=== PATIENT | female | born 1970 | race Caucasian/White ===

== ENCOUNTER 2017-01-05 18:12 | Emergency (ER) | payer OTHER ==
[~2017-01-05] VITALS: Ht 162.6 cm; Wt 56.0 kg
[2017-01-05] MEDS ORDERED: DEXAMETHASONE SOD PHOS 4 MG/ML VIAL IM ONE (20:15)
[2017-01-05] MEDS ORDERED: METHOCARBAMOL 500 MG TAB PO ONE (20:15)
--- NOTE | 2017-01-05 20:19 | PD ---
HPI Chief Complaint: Back/ Neck Pain or Injury Time Seen by Provider: 20:15 Travel History International Travel<30 days: No Contact w/Intl Traveler<30days: No Traveled to known affect area: No History of Present Illness HPI Patient comes in complaining of exacerbation of chronic low back pain. Patient states this began yesterday when she awoke. Patient denies any known trauma or injury from the day before. Patient states that she believes she just slept wrong. Denies any radiation of pain. The is pain is a aching pain in her low back is worse with bending forward. Patient states she's been taking her naproxen and Neurontin with minimal to no relief of her symptoms. Patient states she lost her prescription Flexeril has not been able take that since Friday night. Patient denies any fevers, IV drug use, loss or change in bowel or bladder, abdominal pain, numbness or tingling anywhere, chest pain, or shortness of breath. PFSH Past Medical History Musculoskeletal: Yes (low back pain) Social History Alcohol Use: No Tobacco Use: Yes Substance Use: No Allergies-Medications (Allergen,Severity, Reaction): Coded Allergies: No Known Allergies (Unverified , 01/05/17) Reported Meds & Prescriptions Reported Meds & Active Scripts Active Robaxin (Methocarbamol) 500 Mg Tab 500 Mg PO Q8HR PRN Prednisone 10 Mg Tab 10 Mg PO BID Reported Flexeril (Cyclobenzaprine HCl) 10 Mg Tab 10 Mg PO TID Neurontin (Gabapentin) 600 Mg Tab 600 Mg PO BID Naproxen 375 Mg Tab 375 Mg PO BID Review of Systems Except as stated in HPI: all other systems reviewed are Neg Physical Exam Narrative GENERAL: Well-developed, well nourished, in no acute distress, and non-ill appearing. SKIN: Focused skin assessment warm and dry. HEAD: Atraumatic. Normocephalic. EYES: Pupils equal and round. EOMI. No scleral icterus. No injection or drainage. ENT: No nasal bleeding or discharge. Mucous membranes pink and moist. NECK: Trachea midline. Supple. No nuclear rigidity. CARDIOVASCULAR: Dorsal pulses 2+, intact, and equal bilaterally. Capillary refill less than 2 seconds.. RESPIRATORY: No accessory muscle use. No respiratory distress. GASTROINTESTINAL: Abdomen soft, non-tender, nondistended. Hepatic and splenic margins not palpable. No pulsatile mass. MUSCULOSKELETAL: No obvious deformities. No clubbing. No cyanosis. No edema. Full range of motion. Hip: FROM and equal BL with passive flexion, extension, Abduction, Adduction, and internal/external rotation. Pulses equal BL distal to injury. Capillary refill less than 2 seconds distal to injury and equal BL. FROM distal to injury and equal BL. Strength distal to injury equal BL. NV intact distal to injury and equal BL. Plantar flexion and dorsal flexion equal BL. Dorsal pulses equal BL. Sensation equal BL 1st web space. There is no tenderness crepitus or midline lumbar spine. Patient reports tenderness to paravertebral spinal muscles on the left lumbar muscles. Straight leg test positive on left. NEUROLOGICAL: Awake and alert. No obvious cranial nerve deficits. Motor grossly within normal limits. Normal speech. PSYCHIATRIC: Appropriate mood and affect; insight and judgment normal. Data Data Last Documented VS Vital Signs Date Time Temp Pulse Resp B/P Pulse Ox O2 Delivery O2 Flow Rate FiO2 01/05/17 20:22 20 Orders Dexamethasone Inj (Decadron Inj) (01/05/17 20:15) Methocarbamol (Robaxin) (01/05/17 20:15) MDM Medical Decision Making Medical Screen Exam Complete: Yes Emergency Medical Condition: Yes Differential Diagnosis Fracture, strain, contusion, other Narrative Course The patient presented complaining of back pain. There was no history of recent fall or trauma. There was no evidence to support genitourinary etiology. There is also no evidence to suggest vascular pathology such as AAA dissection. No fevers or other evidence to suspect infectious processes, abscess, osteomyelitis etc.The patients neurological exam is normal with normal motor and sensory. There is no saddle paresthesias reported and no bowel or bladder incontinence or retention. I suspect the pain is mechanical in nature. Clinical suspicion, plan of care and management was discussed with the patient. The patient was instructed to follow up with their health care provider. The patient was also instructed to return if the pain worsened, changed, or developed weakness or bowel or bladder trouble. The patient agreed with plan. Patient in no obvious distress upon re-evaluation. Reports symptoms have improved with medication here. Patient was asked if they wanted to speak to my attending, which the patient did not wish to do at this time. Any questions/ concerns in reference to patient diagnosis/condition discussed and clarified prior to patient's discharge. Reinforced sheer importance of close follow up with patient's primary physician or primary care clinic. Instructed patient to return to ED immediately, if symptoms return/worsen. Pt showed understanding of above instructions. Further instructions and recommendations were detailed in discharge paperwork. Pt ambulated without difficulty out of ED at discharge. Diagnosis Primary Impression: Acute exacerbation of chronic low back pain Patient Instructions: Back Pain (ED), Chronic Back Pain (ED), General Instructions, Lower Back Exercises (GEN) Additional Instructions: Follow-up with your primary care physician this week as scheduled. Take all medication as prescribed. Do not take muscle relaxer prescribed today with your Flexeril. Return to the emergency department if symptoms get worse. Med/Other Pt SpecificInfo: Prescription(s) given Scripts Methocarbamol (Robaxin)500 Mg [id number] Mg PO Q8HR PRN (MUSCLE PAIN) #10 TAB Ref 0 Prov:Sahhida García MD 01/05/17 Prednisone 10 Mg Tab10 Mg PO BID #6 TAB Ref 0 Prov:Shahida García MD 01/05/17 Disposition: 01 DISCHARGE HOME Condition: Donnie Vaughan Jan 05, 2017 20:19 Condition: Donnie Vaughan Jan 05, 2017 20:19
[2017-01-05] MEDS ORDERED: CYCL1TAB29 PO (20:20)
[2017-01-05] MEDS ORDERED: NEUR600T PO (20:20)
[2017-01-05] MEDS ORDERED: NAPR375T PO (20:20)
[2017-01-05] MEDS ORDERED: PRED10 PO (20:22)
[2017-01-05] MEDS ORDERED: ROBA500T PO (20:22)
== END 2017-01-05 21:20 | disposition home or self-care (01) ==
LOC: NEPD 18:12
DX: M54.5 Low back pain (principal); G89.29 Other chronic pain; Z79.899 Other long term (current) drug therapy; Z72.0 Tobacco use
CPT/HCPCS: 96372; 99284; J1100

== ENCOUNTER 2017-08-28 14:22 | Emergency (ER) | payer OTHER ==
[~2017-08-28 14:22] MED LIST: CYCL10TA PO; NAPR-855 PO; NEUR600T PO; PRED10 PO; ROBA500T PO
[2017-08-28 14:35] VITALS: BP 107/77; PULSE 130; RESP 20; TEMP 98.7; O2SAT 98
[2017-08-28 15:51] LABS: AUTOMATED NEUTROPHIL # 16.8 TH/MM3 (1.8-7.7); BASOPHIL % 0.1 % (0.0-2.0); EOSINOPHIL % 0.1 % (0.0-4.0); HEMATOCRIT 39.4 % (35.0-46.0); HEMOGLOBIN 13.9 GM/DL (11.6-15.3); LYMPH % 5.9 % (9.0-44.0); LYMPHOCYTE # 1.3 TH/MM3 (1.0-4.8); MEAN CELL VOLUME 88.1 FL (80.0-100.0); MEAN CORPUSCULAR HEMOGLOBIN 31.1 PG (27.0-34.0); MEAN CORPUSCULAR HGB CONC 35.4 % (32.0-36.0); MEAN PLATELET VOLUME 8.7 FL (7.0-11.0); MONO % 16.5 % (0.0-8.0); MONOCYTE # 3.6 TH/MM3 (0-0.9); NEUT % 77.4 % (16.0-70.0); PLATELET COUNT 203 TH/MM3 (150-450); RED BLOOD COUNT 4.48 MIL/MM3 (4.00-5.30); RED CELL DISTRIBUTION WIDTH 13.1 % (11.6-17.2); WHITE BLOOD COUNT 21.7 TH/MM3 (4.0-11.0)
[2017-08-28 16:08] LABS: ALBUMIN 3.3 GM/DL (3.4-5.0); ALT (GPT) 19 U/L (10-53); AST (GOT) 15 U/L (15-37); BICARBONATE 20.9 MEQ/L (21.0-32.0); BLOOD UREA NITROGEN 8 MG/DL (7-18); CALCIUM 8.7 MG/DL (8.5-10.1); CHLORIDE 104 MEQ/L (98-107); CREATININE 0.96 MG/DL (0.50-1.00); GLOMERULAR FILTRATION RATE 62 ML/MIN (>89); GLUCOSE,RANDOM 108 MG/DL (74-106); SODIUM (NA) 134 MEQ/L (136-145)
[2017-08-28 16:10] LABS: ALKALINE PHOSPHATASE 82 U/L (45-117); TOTAL BILIRUBIN ADULT 0.5 MG/DL (0.2-1.0)
[2017-08-28 16:27] LABS: BANDS 7 % (0-6); LYMPHOCYTES 2 % (9-44); MONOCYTES 17 % (0-8); NEUTROPHIL # MANUAL DIFF 17.6 TH/MM3 (1.8-7.7); POLYS (SEG NEUTROPHILS) 74 % (16-70)
[2017-08-28 16:28] LABS: DOHLE BODIES PRESENT (NONE SEEN)
[2017-08-28] MEDS ORDERED: SODIUM CHLOR 0.9% 1000 ML INJ 1,000 ML IV ONE (17:15)
--- NOTE | 2017-08-28 17:17 | PD ---
HPI Chief Complaint: GI Complaint Time Seen by Provider: 17:07 Travel History International Travel<30 days: No Contact w/Intl Traveler<30days: No Traveled to known affect area: No History of Present Illness HPI Patient is a 47-year-old female presents emergency department for evaluation of headache right upper quadrant abdominal pain, generalized weakness and just not feeling well. She states that she gets frequent infections, she went to her primary care physician today because she really did not want to come to the emergency department because she frequently gets admitted, states is also been nauseous without vomiting and very thirsty, not eating or drinking very well. States symptoms for the past 3 days, gradually worsening, associated signs symptoms in context as above PFSH Past Medical History Arthritis: Yes Diminished Hearing: No Musculoskeletal: Yes (low back pain) Menopausal: Yes : 2 Para: 2 Past Surgical History Hysterectomy: Yes (1988) Social History Alcohol Use: No Tobacco Use: Yes (one pack) Substance Use: No Allergies-Medications (Allergen,Severity, Reaction): Coded Allergies: No Known Allergies (Unverified , 01/05/17) Reported Meds & Prescriptions Reported Meds & Active Scripts Active Keflex (Cephalexin) 500 Mg Cap 500 Mg PO Q6H 7 Days Robaxin (Methocarbamol) 500 Mg Tab 500 Mg PO Q8HR PRN Prednisone 10 Mg Tab 10 Mg PO BID Reported Flexeril (Cyclobenzaprine HCl) 10 Mg Tab 10 Mg PO TID Neurontin (Gabapentin) 600 Mg Tab 600 Mg PO BID Naproxen 375 Mg Tab 375 Mg PO BID Review of Systems Except as stated in HPI: all other systems reviewed are Neg Physical Exam Narrative GENERAL: Well-developed, very thin patient appears ill. Anxious peer SKIN: Focused skin assessment warm/dry. HEAD: Atraumatic. Normocephalic. EYES: Pupils equal and round. No scleral icterus. No injection or drainage. ENT: No nasal bleeding or discharge. Mucous membranes pink and moist. NECK: Trachea midline. No JVD. CARDIOVASCULAR: Tachycardic with regular rhythm. No murmur appreciated. RESPIRATORY: No accessory muscle use. Clear to auscultation. Breath sounds equal bilaterally. GASTROINTESTINAL: Abdomen soft, non-tender, nondistended. Hepatic and splenic margins not palpable. MUSCULOSKELETAL: No obvious deformities. No clubbing. No cyanosis. No edema. NEUROLOGICAL: Awake and alert. No obvious cranial nerve deficits. Motor grossly within normal limits. Normal speech. PSYCHIATRIC: Appropriate mood and affect; insight and judgment normal. Data Data Last Documented VS Vital Signs Date Time Temp Pulse Resp B/P (MAP) Pulse Ox O2 Delivery O2 Flow Rate FiO2 08/28/17 14:35 98.7 130 20 107/77 (87) 98 Orders Orders Complete Blood Count With Diff (08/28/17 14:38) Comprehensive Metabolic Panel (08/28/17 14:38) Urinalysis - C+S If Indicated (08/28/17 14:38) Iv Access Insert/Monitor (08/28/17 14:38) Oxygen Administration (08/28/17 14:38) Oximetry (08/28/17 14:38) Lipase (08/28/17 14:38) Electrocardiogram (08/28/17 ) Monoscreen (08/28/17 17:15) Influenzae A/B Antigen (08/28/17 17:15) Chest, Pa & Lat (08/28/17 ) Sodium Chlor 0.9% 1000 Ml Inj (Ns 1000 M (08/28/17 17:15) Urine Culture (08/28/17 15:00) Ceftriaxone Inj (Rocephin Inj) (08/28/17 18:00) Labs Laboratory Tests Test 08/28/17 15:00 White Blood Count 21.7 TH/MM3 Red Blood Count 4.48 MIL/MM3 Hemoglobin 13.9 GM/DL Hematocrit 39.4 % Mean Corpuscular Volume 88.1 FL Mean Corpuscular Hemoglobin 31.1 PG Mean Corpuscular Hemoglobin Concent 35.4 % Red Cell Distribution Width 13.1 % Platelet Count 203 TH/MM3 Mean Platelet Volume 8.7 FL Neutrophils (%) (Auto) 77.4 % Lymphocytes (%) (Auto) 5.9 % Monocytes (%) (Auto) 16.5 % Eosinophils (%) (Auto) 0.1 % Basophils (%) (Auto) 0.1 % Neutrophils # (Auto) 16.8 TH/MM3 Lymphocytes # (Auto) 1.3 TH/MM3 Monocytes # (Auto) 3.6 TH/MM3 Eosinophils # (Auto) 0.0 TH/MM3 Basophils # (Auto) 0.0 TH/MM3 CBC Comment AUTO DIFF Differential Total Cells Counted 100 Neutrophils % (Manual) 74 % Band Neutrophils % 7 % Lymphocytes % 2 % Monocytes % 17 % Neutrophils # (Manual) 17.6 TH/MM3 Differential Comment FINAL DIFF MANUAL Dohle Bodies PRESENT Platelet Estimate NORMAL Platelet Morphology Comment NORMAL Urine Color YELLOW Urine Turbidity CLOUDY Urine pH 6.5 Urine Specific [place] 1.012 Urine Protein 30 mg/dL Urine Glucose (UA) NEG mg/dL Urine Ketones NEG mg/dL Urine Occult Blood SMALL Urine Nitrite POS Urine Bilirubin NEG Urine Urobilinogen LESS THAN 2.0 MG/DL Urine Leukocyte Esterase LARGE Urine RBC 11 /hpf Urine WBC /hpf Urine WBC Clumps MANY Urine Squamous Epithelial Cells 29 /hpf Urine Bacteria MOD /hpf Urine Hyaline Casts 5 /lpf Urine Mucus FEW /lpf Microscopic Urinalysis Comment CULTURE INDICATED Blood Urea Nitrogen 8 MG/DL Creatinine 0.96 MG/DL Random Glucose 108 MG/DL Total Protein 8.0 GM/DL Albumin 3.3 GM/DL Calcium Level 8.7 MG/DL Alkaline Phosphatase 82 U/L Aspartate Amino Transf (AST/SGOT) 15 U/L Alanine Aminotransferase (ALT/SGPT) 19 U/L Total Bilirubin 0.5 MG/DL Sodium Level 134 MEQ/L Potassium Level 3.9 MEQ/L Chloride Level 104 MEQ/L Carbon Dioxide Level 20.9 MEQ/L Anion Gap 9 MEQ/L Estimat Glomerular Filtration Rate 62 ML/MIN Lipase 45 U/L MDM Medical Decision Making Medical Screen Exam Complete: Yes Emergency Medical Condition: Yes Differential Diagnosis UTI, sepsis, viral illness, gallbladder, acute abdomen, headache, dehydration Narrative Course Patient room to the emergency department, labs were drawn in triage 2 weeks. Patient CARE, at times she is room to the emergency department her white count is significantly elevated to 22,000, there is a monocyte predominance but there is also a left shift. Given her right upper quadrant pain the possibilities for acute cholecystitis as well as monocytosis are also possible. I recommended the patient have CAT scan of her abdomen as well as chest x-ray and CT head as she has had headache. Initially she is excepting but then when they went to start IV for fluids to be given the patient adamantly refused stating that she wanted to go home. I revisited her and the patient states that her grandchildren are in town and that she wants to go home. By this time the urine had returned which was nitrate positive and given her vital signs are white count and the confirmed infection she is now septic with UTI as her source. I highly recommend to her that she be admitted to the hospital for IV antibiotics fluid resuscitation and monitoring closely of her vital signs. She states that she wanted to go home. I then discussed with her the risk of and permanent disability including being completely ventilator dependent and bed sores and being bedbound for the rest of her life she verbalized understanding and accepted these risks and still chose to sign out AMA. She was given a dose of Rocephin prior to leaving the hospital and will be placed on Keflex, I have asked nursing to provide her with her discharge instructions and I told her to come back as soon as possible for further treatment. Diagnosis Primary Impression: Sepsis Additional Impression: UTI (urinary tract infection) Additional Instructions: You have chosen to sign out AGAINST MEDICAL ADVICE today, as was discussed with you and you told me you have accepted the risk of becoming permanently and totally disabled including the possibility of being on life support for the rest your life as well as dying. I recommend you return to the emergency department as soon as possible for admission. Med/Other Pt SpecificInfo: Prescription(s) given Scripts Cephalexin (Keflex) 500 Mg Cap 500 MG PO Q6H for Infection for 7 Days, #28 CAP 0 Refills Prov: Antwon Fleming MD 08/28/17 Disposition: 07 AGAINST MEDICAL ADVICE Antwon Fleming MD Aug 28, 2017 17:17
[2017-08-28 17:18] LABS: BACTERIA, URINE MOD /hpf; BILIRUBIN, URINE NEG (NEG); BLOOD, URINE SMALL (NEG); GLUCOSE,URINE NEG (NEG); HYALINE CAST, URINE 5 /lpf (RARE); KETONE, URINE NEG (NEG); MUCUS URINE FEW /lpf (OCC); NITRITE,URINE POS (NEG); PH, URINE 6.5 (5.0-8.5); SQUAMOUS EPITHELIAL CELL URINE 29 /hpf (0-5); URINE COLOR YELLOW (YELLW/STRAW); URINE LEUKOCYTE ESTERASE LARGE (NEG); WHITE BLOOD CELL CLUMPS MANY
--- NOTE | 2017-08-28 17:47 | RADRPT ---
EXAM DATE/TIME: 08/28/2017 17:34 [facility] COMPARISON: No previous studies available for comparison. INDICATIONS : Short of breath. MEDICAL HISTORY : Hepatitis C. Myocardiopathy. SURGICAL HISTORY : Hysterectomy. ENCOUNTER: Initial ACUITY: 1 day PAIN SCORE: 0/10 LOCATION: Bilateral chest FINDINGS: PA and lateral views of the chest demonstrate the lungs to be symmetrically aerated without evidence of mass, infiltrate or effusion. The cardiomediastinal contours are unremarkable. Osseous structure s are intact. CONCLUSION: 1. No acute cardiopulmonary disease. Patrick Metzger MD on August 28, 2017 at 17:45 Board Certified Radiologist. This report was verified electronically.
[2017-08-28] MEDS ORDERED: CEPH-460 PO (17:52)
--- NOTE | 2017-08-28 23:56 | EKG ---
Date Performed: 08/28/2017 Time Performed: 15:07:03 PTAGE: 47 years EKG: SINUS TACHYCARDIA WITH SHORT SC INTERVAL NONSPECIFIC ST & T-WAVE ABNORMALITY ABNORMAL RHYTH M ECG NO PREVIOUS TRACING DOCTOR: Mario Blackburn Interpretating Date/Time 08/28/2017 23:55:36
[2017-08-29 05:33] LABS: MONOSCREEN NEG (NEG)
== END 2017-08-28 18:23 | disposition left against medical advice (07) ==
LOC: NEPC 14:22
DX: A41.9 Sepsis, unspecified organism (principal); N39.0 Urinary tract infection, site not specified; B96.29 Other Escherichia coli [E. coli] as the cause of diseases classified elsewhere; M19.90 Unspecified osteoarthritis, unspecified site; F17.200 Nicotine dependence, unspecified, uncomplicated; Z53.20 Procedure and treatment not carried out because of patient's decision for unspecified reasons
CPT/HCPCS: 71046; 80053; 81001; 83690; 85007; 85027; 86308; 87077; 87086; 87186; 93005; 96372; 99285; J0696

== ENCOUNTER 2017-08-29 11:47 | Emergency (ER) | payer OTHER ==
[~2017-08-29] VITALS: Ht 160 cm; Wt 60.0 kg
[~2017-08-29 11:47] MED LIST changes: +CEPH-460 PO
[2017-08-29 11:54] VITALS: BP 114/71; PULSE 119; RESP 20; TEMP 98; O2SAT 100
[2017-08-30] MEDS ORDERED: CLON.5 PO (22:59)
== END 2017-08-29 13:49 | disposition left against medical advice (07) ==
LOC: NED 11:47
DX: N39.0 Urinary tract infection, site not specified (principal)
CPT/HCPCS: 99281

== ENCOUNTER 2017-08-30 19:55 | Inpatient (IN) | payer OTHER ==
[~2017-08-30] VITALS: Ht 160 cm; Wt 57.8 kg
[2017-08-30 19:56] VITALS: BP 157/65; PULSE 119; RESP 18; TEMP 98.9; O2SAT 97
[2017-08-30 21:03] VITALS: TEMP 99.5
[2017-08-30] MEDS ORDERED: SODIUM CHLOR 0.9% 1000 ML INJ 800 ML IV ONE (21:47)
[2017-08-30] MEDS ORDERED: SODIUM CHLOR 0.9% 1000 ML INJ 1,000 ML IV ONE (21:47)
[2017-08-30] MEDS ORDERED: PIPERACIL-TAZO 4.5 GM PREMIX 100 ML IV ONE (22:00)
--- NOTE | 2017-08-30 22:09 | PD ---
HPI Chief Complaint: Abdominal Pain Time Seen by Provider: 21:39 Travel History International Travel<30 days: No Contact w/Intl Traveler<30days: No Traveled to known affect area: No History of Present Illness HPI 47-year-old female seen in the emergency department on 08/28/17, diagnosed with sepsis with a white count of 22,000 as well as a UTI, recommended to be admitted at that time, left AMA, here because the patient feels even worse. The patient is complaining of generalized malaise and weakness, headache, and right upper abdominal discomfort. The symptoms have actually been going on for about for 5 days. Headache has been constant, however intermittently worse at times, diffuse, described as pressure, moderate to severe. Right upper quadrant abdominal pain described as a dull ache, nonradiating, constant. History of hysterectomy. She has had dysuria and increased urinary frequency. No nausea or vomiting. No diarrhea. No rash. She denies illicit drug use. Chart reviewed from 08/28/17 shows that the patient had a UTI that grew out ESBL positive E. coli that is sensitive to Augmentin, ertapenem, imipenem, Zosyn, Bactrim. The patient states that she left AMA 2 days ago because her grandchildren were in town. She was discharged home with Keflex, however she did not fill this prescription. [facility] Past Medical History Arthritis: Yes Diminished Hearing: No Musculoskeletal: Yes (low back pain) ?: Not Menopausal: Yes : 2 Para: 2 Past Surgical History Hysterectomy: Yes (1988) Social History Alcohol Use: No Tobacco Use: Yes (one pack) Substance Use: No Allergies-Medications (Allergen,Severity, Reaction): Coded Allergies: No Known Allergies (Unverified Allergy, Unknown, 08/30/17) Reported Meds & Prescriptions Reported Meds & Active Scripts Active Prednisone 10 Mg Tab 10 Mg PO BID Reported Klonopin (Clonazepam) 0.5 Mg Tab 0.5 Mg PO BID Flexeril (Cyclobenzaprine HCl) 10 Mg Tab 10 Mg PO TID Neurontin (Gabapentin) 600 Mg Tab 600 Mg PO BID Naproxen 375 Mg Tab 375 Mg PO BID Review of Systems Except as stated in HPI: all other systems reviewed are Neg Physical Exam Narrative GENERAL: Well-developed, thin, no apparent distress, awake, alert SKIN: Focused skin assessment warm/dry. No rash. HEAD: Atraumatic. Normocephalic. EYES: Pupils equal and round. No scleral icterus. No injection or drainage. ENT: No nasal bleeding or discharge. Mucous membranes pink and dry. Edentulous. Normal pharynx. NECK: Trachea midline. No JVD. No nuchal rigidity. CARDIOVASCULAR: Tachycardic, rate 107, regular. RESPIRATORY: No accessory muscle use. Clear to auscultation. Breath sounds equal bilaterally. GASTROINTESTINAL: Abdomen soft, non-tender, nondistended. MUSCULOSKELETAL: No obvious deformities. No clubbing. No cyanosis. No edema. NEUROLOGICAL: Awake and alert. No obvious cranial nerve deficits. Motor grossly within normal limits. Normal speech. PSYCHIATRIC: Appropriate mood and affect; insight and judgment normal. Data Data Last Documented VS Vital Signs Date Time Temp Pulse Resp B/P (MAP) Pulse Ox O2 Delivery O2 Flow Rate FiO2 08/31/17 02:30 99.4 81 20 109/68 (82) 08/31/17 01:30 98 08/30/17 22:36 Room Air Orders Orders Sepsis Workup Initiated (08/30/17 ) Complete Blood Count With Diff (08/30/17 21:47) Comprehensive Metabolic Panel (08/30/17 21:47) Lactic Acid Sepsis Protocol (08/30/17 21:47) Urinalysis - C+S If Indicated (08/30/17 21:47) Influenzae A/B Antigen (08/30/17 21:47) Blood Culture (08/30/17 21:47) Chest, Single Ap (08/30/17 21:47) Blood Glucose (08/30/17 21:47) Ecg Monitoring (08/30/17 21:47) Iv Access Insert/Monitor (08/30/17 21:47) Oximetry (08/30/17 21:47) Oxygen Administration (08/30/17 21:47) Ct Abd/Pel W Iv Contrast(Rout) (08/30/17 21:47) Sodium Chlor 0.9% 1000 Ml Inj (Ns 1000 M (08/30/17 21:47) Sodium Chlor 0.9% 1000 Ml Inj (Ns 1000 M (08/30/17 21:47) Piperacil-Tazo 4.5 Gm Premix (Zosyn 4.5 (08/30/17 22:00) Metoclopramide Inj (Reglan Inj) (08/30/17 22:45) Ketorolac Inj (Toradol Inj) (08/30/17 22:45) Potassium Chlor 10 Meq Premix (Kcl 10 Me (08/31/17 00:15) Urine Culture (08/30/17 23:25) Iohexol 350 Inj (Omnipaque 350 Inj) (08/31/17 00:18) Piperacil-Tazo 4.5 Gm Premix (Zosyn 4.5 (08/31/17 04:00) Admit To Inpatient (08/31/17 ) Vital Signs (Adult) Q4H (08/31/17 03:22) Activity Oob Ad Yasemin (08/31/17 03:22) Snack Foods Mixer Operator / Telemetry .CONTINUOUS (08/31/17 03:22) Intake + Output COLTON.QSHIFT (08/31/17 03:22) Sodium Chlor 0.9% 1000 Ml Inj (Ns 1000 M (08/31/17 03:22) Sodium Chloride 0.9% Flush (Ns Flush) (08/31/17 03:30) Sodium Chloride 0.9% Flush (Ns Flush) (08/31/17 09:00) Ondansetron Inj (Zofran Inj) (08/31/17 03:30) Comprehensive Metabolic Panel (09/01/17 06:00) Complete Blood Count With Diff (09/01/17 06:00) Scd Bilateral/Knee High COLTON.BID (08/31/17 03:22) Gomez Bilateral/Knee High COLTON.QSHIFT (08/31/17 03:24) Acetaminophen (Tylenol) (08/31/17 03:30) Acetamin-Hydrocod 325-5 Mg ([place] 5-325 (08/31/17 03:30) Acetamin-Hydrocod 325-10 Mg ([place] 10-32 (08/31/17 03:30) Docusate Sodium-Senna ([place]armelita-Colace) (08/31/17 09:00) Magnesium Hydroxide Liq (Milk Of Magnesi (08/31/17 03:30) Sennosides (Senokot) (08/31/17 03:30) Bisacodyl Supp (Dulcolax Supp) (08/31/17 03:30) Lactulose Liq (Lactulose Liq) (08/31/17 03:30) Inpatient Certification (08/31/17 ) Admit Order (Ed Use Only) (08/31/17 ) Snack Foods Mixer Operator / Telemetry COLTON.Q8H (08/31/17 03:25) Diet Heart Healthy (08/31/17 Breakfast) Activity Oob With Assistance (08/31/17 03:25) Notify Dr: Other (08/31/17 03:25) Labs Laboratory Tests Test 08/30/17 22:15 08/30/17 23:25 White Blood Count 15.1 TH/MM3 Red Blood Count 4.31 MIL/MM3 Hemoglobin 12.9 GM/DL Hematocrit 37.5 % Mean Corpuscular Volume 86.9 FL Mean Corpuscular Hemoglobin 29.9 PG Mean Corpuscular Hemoglobin Concent 34.4 % Red Cell Distribution Width 12.7 % Platelet Count 213 TH/MM3 Mean Platelet Volume 8.3 FL Neutrophils (%) (Auto) 68.3 % Lymphocytes (%) (Auto) 9.7 % Monocytes (%) (Auto) 21.0 % Eosinophils (%) (Auto) 0.5 % Basophils (%) (Auto) 0.5 % Neutrophils # (Auto) 10.2 TH/MM3 Lymphocytes # (Auto) 1.5 TH/MM3 Monocytes # (Auto) 3.2 TH/MM3 Eosinophils # (Auto) 0.1 TH/MM3 Basophils # (Auto) 0.1 TH/MM3 CBC Comment AUTO DIFF Differential Total Cells Counted 100 Neutrophils % (Manual) 58 % Band Neutrophils % 5 % Lymphocytes % 6 % Monocytes % 30 % Basophils % 1 % Neutrophils # (Manual) 9.5 TH/MM3 Differential Comment FINAL DIFF MANUAL Platelet Estimate NORMAL Platelet Morphology Comment NORMAL Red Cell Morphology Comment NORMAL Blood Urea Nitrogen 10 MG/DL Creatinine 0.80 MG/DL Random Glucose 123 MG/DL Total Protein 7.6 GM/DL Albumin 2.9 GM/DL Calcium Level 8.4 MG/DL Alkaline Phosphatase 81 U/L Aspartate Amino Transf (AST/SGOT) 19 U/L Alanine Aminotransferase (ALT/SGPT) 17 U/L Total Bilirubin 0.4 MG/DL Sodium Level 132 MEQ/L Potassium Level 2.9 MEQ/L Chloride Level 98 MEQ/L Carbon Dioxide Level 24.1 MEQ/L Anion Gap 10 MEQ/L Estimat Glomerular Filtration Rate 76 ML/MIN Lactic Acid Level 0.8 mmol/L Urine Color YELLOW Urine Turbidity CLOUDY Urine pH 6.0 Urine Specific [place] LESS/EQUAL 1.005 Urine Protein TRACE mg/dL Urine Glucose (UA) NEG mg/dL Urine Ketones NEG mg/dL Urine Occult Blood MOD Urine Nitrite POS Urine Bilirubin NEG Urine Urobilinogen 0.2 MG/DL Urine Leukocyte Esterase MOD Urine RBC 4-9 /hpf Urine WBC 50-99 /hpf Urine WBC Clumps FEW Urine Squamous Epithelial Cells 0-5 /hpf Urine Bacteria MANY /hpf Microscopic Urinalysis Comment CATH-CULTURE IND MDM Medical Decision Making Medical Screen Exam Complete: Yes Emergency Medical Condition: Yes Medical Record Reviewed: Yes Differential Diagnosis Sepsis, UTI, bacteremia, cholecystitis, colitis, meningitis/encephalitis less likely Narrative Course Initial vital signs show heart rate 119, blood pressure 157/65, pulse ox 97% on room air, oral temperature 99.5F. Chart review shows that the patient's UA from 2 days ago grew out E. coli that is positive for a BSL that is sensitive to Zosyn, therefore the patient was given a dose of Zosyn IV as well as written for 2 L of normal saline IV after my assessment. The patient was also given IV Toradol and IV Reglan and states that her headache had resolved. CBC: WBC 15.1, hemoglobin 12.9, hematocrit 37.5, platelets 213 At approximately 11:00 PM at the end of my shift the patient was signed out to Dr. Alvarez to follow-up with the rest of labs, imaging, and disposition. Ren Richard MD Aug 30, 2017 22:09
[2017-08-30 22:25] LABS: AUTOMATED NEUTROPHIL # 10.2 TH/MM3 (1.8-7.7); BASOPHIL # 0.1 TH/MM3 (0-0.2); BASOPHIL % 0.5 % (0.0-2.0); EOSINOPHIL # 0.1 TH/MM3 (0-0.4); EOSINOPHIL % 0.5 % (0.0-4.0); HEMATOCRIT 37.5 % (35.0-46.0); HEMOGLOBIN 12.9 GM/DL (11.6-15.3); LYMPH % 9.7 % (9.0-44.0); LYMPHOCYTE # 1.5 TH/MM3 (1.0-4.8); MEAN CELL VOLUME 86.9 FL (80.0-100.0); MEAN CORPUSCULAR HEMOGLOBIN 29.9 PG (27.0-34.0); MEAN CORPUSCULAR HGB CONC 34.4 % (32.0-36.0); MEAN PLATELET VOLUME 8.3 FL (7.0-11.0); MONOCYTE # 3.2 TH/MM3 (0-0.9); NEUT % 68.3 % (16.0-70.0); PLATELET COUNT 213 TH/MM3 (150-450); RED BLOOD COUNT 4.31 MIL/MM3 (4.00-5.30); RED CELL DISTRIBUTION WIDTH 12.7 % (11.6-17.2); WHITE BLOOD COUNT 15.1 TH/MM3 (4.0-11.0)
[2017-08-30 22:30] VITALS: BP 102/62; PULSE 83; RESP 20; O2SAT 97
[2017-08-30 22:36] VITALS: BP 109/71; PULSE 102; RESP 18; O2SAT 100
[2017-08-30] MEDS ORDERED: KETOROLAC TROMETHAMINE 30 MG/ML (IVP) VIAL IV PUSH ONE (22:45)
[2017-08-30] MEDS ORDERED: METOCLOPRAMIDE HCL 10 MG/2 ML VIAL IV PUSH ONE (22:45)
--- NOTE | 2017-08-30 22:47 | RADRPT ---
EXAM DATE/TIME: 08/30/2017 22:17 [facility] COMPARISON: No previous studies available for comparison. INDICATIONS : Diagnosed with sepsis 3 days ago. MEDICAL HISTORY : None. SURGICAL HISTORY : Hysterectomy. ENCOUNTER: Initial ACUITY: 3 days PAIN SCORE: 5/10 LOCATION: Bilateral chest FINDINGS: A single view of the chest demonstrates no focal consolidation or effusion. Heart size within normal limits. No pneumothorax. CONCLUSION: 1. No active disease. José Saavedra MD on August 30, 2017 at 22:44 Board Certified Radiologist. This report was verified electronically.
[2017-08-30] MEDS ORDERED: CLON.5 PO (22:59)
[2017-08-30 23:33] LABS: BILIRUBIN, URINE NEG (NEG); BLOOD, URINE MOD (NEG); GLUCOSE,URINE NEG (NEG); KETONE, URINE NEG (NEG); NITRITE,URINE POS (NEG); URINE COLOR YELLOW (YELLW/STRAW); URINE LEUKOCYTE ESTERASE MOD (NEG)
[2017-08-30 23:50] LABS: BANDS 5 % (0-6); BASOPHILS 1 % (0-2); LYMPHOCYTES 6 % (9-44); MONOCYTES 30 % (0-8); NEUTROPHIL # MANUAL DIFF 9.5 TH/MM3 (1.8-7.7); POLYS (SEG NEUTROPHILS) 58 % (16-70)
[2017-08-30 23:53] LABS: ALBUMIN 2.9 GM/DL (3.4-5.0); ALKALINE PHOSPHATASE 81 U/L (45-117); ALT (GPT) 17 U/L (10-53); AST (GOT) 19 U/L (15-37); BICARBONATE 24.1 MEQ/L (21.0-32.0); BLOOD UREA NITROGEN 10 MG/DL (7-18); CALCIUM 8.4 MG/DL (8.5-10.1); CHLORIDE 98 MEQ/L (98-107); GLOMERULAR FILTRATION RATE 76 ML/MIN (>89); GLUCOSE,RANDOM 123 MG/DL (74-106); SODIUM (NA) 132 MEQ/L (136-145); TOTAL BILIRUBIN ADULT 0.4 MG/DL (0.2-1.0); TOTAL PROTEIN 7.6 GM/DL (6.4-8.2)
[2017-08-31] VITALS (10 sets, daily range): BP systolic 91–116; BP diastolic 53–84; PULSE 81–92; RESP 16–20; TEMP 97.3–99.4; O2SAT 98–100
[2017-08-31] MEDS ORDERED: POTASSIUM CHLOR 10 MEQ PREMIX 100 ML IV ONE (00:15)
--- NOTE | 2017-08-31 00:15 | PD ---
Physical Exam Date Seen by Provider: Aug 31, 2017 Time Seen by Provider: 00:14 Narrative Accepted transfer of care from Dr. Richard Data Data Last Documented VS Vital Signs Date Time Temp Pulse Resp B/P (MAP) Pulse Ox O2 Delivery O2 Flow Rate FiO2 08/31/17 02:30 99.4 81 20 109/68 (82) 08/31/17 01:30 98 08/30/17 22:36 Room Air Orders Orders Sepsis Workup Initiated (08/30/17 ) Complete Blood Count With Diff (08/30/17 21:47) Comprehensive Metabolic Panel (08/30/17 21:47) Lactic Acid Sepsis Protocol (08/30/17 21:47) Urinalysis - C+S If Indicated (08/30/17 21:47) Influenzae A/B Antigen (08/30/17 21:47) Blood Culture (08/30/17 21:47) Chest, Single Ap (08/30/17 21:47) Blood Glucose (08/30/17 21:47) Ecg Monitoring (08/30/17 21:47) Iv Access Insert/Monitor (08/30/17 21:47) Oximetry (08/30/17 21:47) Oxygen Administration (08/30/17 21:47) Ct Abd/Pel W Iv Contrast(Rout) (08/30/17 21:47) Sodium Chlor 0.9% 1000 Ml Inj (Ns 1000 M (08/30/17 21:47) Sodium Chlor 0.9% 1000 Ml Inj (Ns 1000 M (08/30/17 21:47) Piperacil-Tazo 4.5 Gm Premix (Zosyn 4.5 (08/30/17 22:00) Metoclopramide Inj (Reglan Inj) (08/30/17 22:45) Ketorolac Inj (Toradol Inj) (08/30/17 22:45) Potassium Chlor 10 Meq Premix (Kcl 10 Me (08/31/17 00:15) Urine Culture (08/30/17 23:25) Iohexol 350 Inj (Omnipaque 350 Inj) (08/31/17 00:18) Piperacil-Tazo 4.5 Gm Premix (Zosyn 4.5 (08/31/17 04:00) Admit To Inpatient (08/31/17 ) Vital Signs (Adult) Q4H (08/31/17 03:22) Activity Oob Ad Yasemin (08/31/17 03:22) Cpc / Telemetry .CONTINUOUS (08/31/17 03:22) Intake + Output COLTON.QSHIFT (08/31/17 03:22) Sodium Chlor 0.9% 1000 Ml Inj (Ns 1000 M (08/31/17 03:22) Sodium Chloride 0.9% Flush (Ns Flush) (08/31/17 03:30) Sodium Chloride 0.9% Flush (Ns Flush) (08/31/17 09:00) Ondansetron Inj (Zofran Inj) (08/31/17 03:30) Scd Bilateral/Knee High COLTON.BID (08/31/17 03:22) Gomez Bilateral/Knee High COLTON.QSHIFT (08/31/17 03:24) Acetaminophen (Tylenol) (08/31/17 03:30) Acetamin-Hydrocod 325-5 Mg ([place] 5-325 (08/31/17 03:30) Acetamin-Hydrocod 325-10 Mg ([place] 10-32 (08/31/17 03:30) Docusate Sodium-Senna (Carmelita-Colace) (08/31/17 09:00) Magnesium Hydroxide Liq (Milk Of Magnesi (08/31/17 03:30) Sennosides (Senokot) (08/31/17 03:30) Bisacodyl Supp (Dulcolax Supp) (08/31/17 03:30) Lactulose Liq (Lactulose Liq) (08/31/17 03:30) Inpatient Certification (08/31/17 ) Admit Order (Ed Use Only) (08/31/17 ) Cpc / Telemetry COLTON.Q8H (08/31/17 03:25) Diet Heart Healthy (08/31/17 Breakfast) Activity Oob With Assistance (08/31/17 03:25) Notify Dr: Other (08/31/17 03:25) Labs Laboratory Tests Test 08/30/17 22:15 08/30/17 23:25 White Blood Count 15.1 TH/MM3 Red Blood Count 4.31 MIL/MM3 Hemoglobin 12.9 GM/DL Hematocrit 37.5 % Mean Corpuscular Volume 86.9 FL Mean Corpuscular Hemoglobin 29.9 PG Mean Corpuscular Hemoglobin Concent 34.4 % Red Cell Distribution Width 12.7 % Platelet Count 213 TH/MM3 Mean Platelet Volume 8.3 FL Neutrophils (%) (Auto) 68.3 % Lymphocytes (%) (Auto) 9.7 % Monocytes (%) (Auto) 21.0 % Eosinophils (%) (Auto) 0.5 % Basophils (%) (Auto) 0.5 % Neutrophils # (Auto) 10.2 TH/MM3 Lymphocytes # (Auto) 1.5 TH/MM3 Monocytes # (Auto) 3.2 TH/MM3 Eosinophils # (Auto) 0.1 TH/MM3 Basophils # (Auto) 0.1 TH/MM3 CBC Comment AUTO DIFF Differential Total Cells Counted 100 Neutrophils % (Manual) 58 % Band Neutrophils % 5 % Lymphocytes % 6 % Monocytes % 30 % Basophils % 1 % Neutrophils # (Manual) 9.5 TH/MM3 Differential Comment FINAL DIFF MANUAL Platelet Estimate NORMAL Platelet Morphology Comment NORMAL Red Cell Morphology Comment NORMAL Blood Urea Nitrogen 10 MG/DL Creatinine 0.80 MG/DL Random Glucose 123 MG/DL Total Protein 7.6 GM/DL Albumin 2.9 GM/DL Calcium Level 8.4 MG/DL Alkaline Phosphatase 81 U/L Aspartate Amino Transf (AST/SGOT) 19 U/L Alanine Aminotransferase (ALT/SGPT) 17 U/L Total Bilirubin 0.4 MG/DL Sodium Level 132 MEQ/L Potassium Level 2.9 MEQ/L Chloride Level 98 MEQ/L Carbon Dioxide Level 24.1 MEQ/L Anion Gap 10 MEQ/L Estimat Glomerular Filtration Rate 76 ML/MIN Lactic Acid Level 0.8 mmol/L Urine Color YELLOW Urine Turbidity CLOUDY Urine pH 6.0 Urine Specific [place] LESS/EQUAL 1.005 Urine Protein TRACE mg/dL Urine Glucose (UA) NEG mg/dL Urine Ketones NEG mg/dL Urine Occult Blood MOD Urine Nitrite POS Urine Bilirubin NEG Urine Urobilinogen 0.2 MG/DL Urine Leukocyte Esterase MOD Urine RBC 4-9 /hpf Urine WBC 50-99 /hpf Urine WBC Clumps FEW Urine Squamous Epithelial Cells 0-5 /hpf Urine Bacteria MANY /hpf Microscopic Urinalysis Comment CATH-CULTURE IND MDM Medical Record Reviewed: Yes Supervised Visit with SADE: No Interpretation(s) Last Impressions Head CT 08/31/17 0000 Signed Impressions: Service Date/Time: Thursday, August 31, 2017 09:30 - CONCLUSION: No acute disease. Adalberto Tena MD Chest X-Ray [id number] Signed Impressions: Service Date/Time: Wednesday, August 30, 2017 22:17 - CONCLUSION: 1. No active disease. José Saavedra MD Abdomen/Pelvis CT [id number] Signed Impressions: Service Date/Time: Thursday, August 31, 2017 00:13 - CONCLUSION: 1. Trace free fluid in Morison's pouch and around the right kidney, nonspecific. Evaluation for possible pyelonephritis recommended but otherwise I don't see a clear etiology. 2. Mildly distended common bile duct, also etiology uncertain. Javi Rosado MD Differential Diagnosis Accepted transfer of care from Dr. Richard; please refer to his dictation Narrative Course Accepted transfer of care from Dr. Richard; for follow up pending labs and imaging and admission Patient was identified at previous evaluation to have pyelonephritis subsequently cultures of showed ESBL positive E. coli and patient requires admission for sepsis imaging studies identify scant fluid about the kidney on the right and some mild biliary dilatation; patient's case discussed with on- call medicine for admission. Physician Communication Physician Communication discussed with Dr Cardoza Diagnosis Primary Impression: Infection due to ESBL-producing Escherichia coli Additional Impression: Pyelonephritis Admitting Information Admitting Physician Requests: Admit Terri Alvarez MD Aug 31, 2017 00:15
[2017-08-31 00:16] LABS: WHITE BLOOD CELL CLUMPS FEW
[2017-08-31 00:17] LABS: BACTERIA, URINE MANY /hpf; SQUAMOUS EPITHELIAL CELL URINE 0-5 /hpf (0-5)
[2017-08-31] MEDS ORDERED: IOHEXOL 350 MG/ML 10 ML VIAL (for RAD DIAG) IVCONTRAST ONE (00:18)
--- NOTE | 2017-08-31 00:44 | RADRPT ---
EXAM DATE/TIME: 08/31/2017 00:13 [facility] COMPARISON: No previous studies available for comparison. INDICATIONS : Lower abdominal pain. IV CONTRAST: 91 cc Omnipaque 350 (iohexol) IV ORAL CONTRAST: No oral contrast ingested. RADIATION DOSE: 5.64 CTDIvol (mGy) MEDICAL HISTORY : None SURGICAL HISTORY : Hysterectomy. ENCOUNTER: Initial ACUITY: 3 days PAIN SCALE: 5/10 LOCATION: Abdomen. TECHNIQUE: Volumetric scanning of the abdomen and pelvis was performed. Using automated exposure control and ad justment of the mA and/or kV according to patient size, radiation dose was kept as low as reasonably achievable to obtain optimal diagnostic quality images. DICOM format image data is available electro nically for review and comparison. FINDINGS: Trace free fluid seen in Morison's pouch and around the right kidney. No stones or hydronephrosis/hyd roureter demonstrated. The liver appears normal. Mildly distended common bile duct, measures approximate 7 mm. No perceptible stone or biliary inflamm atory changes. No obstruction or acute inflammatory changes are seen of the gastrointestinal tract. I don't clearly see the appendix but no focal right lower quadrant inflammatory changes are demonstrated. It may has been removed at the time of hysterectomy. There is a 21 mm cyst of the right ovary. CONCLUSION: 1. Trace free fluid in Morison's pouch and around the right kidney, nonspecific. Evaluation for possi ble pyelonephritis recommended but otherwise I don't see a clear etiology. 2. Mildly distended common bile duct, also etiology uncertain. Javi Rosado MD on August 31, 2017 at 0:37 Board Certified Radiologist. This report was verified electronically.
[2017-08-31] MEDS ORDERED: SENNOSIDES 8.6 MG TAB PO PRN (03:30)
[2017-08-31] MEDS ORDERED: BISACODYL 10 MG SUPP RECTAL PRN (03:30)
[2017-08-31] MEDS ORDERED: SODIUM CHLORIDE 0.9% FLUSH 10 ML FLUSH IV FLUSH PRN (03:30)
[2017-08-31] MEDS ORDERED: MAGNESIUM HYDROXIDE SUSP 30 ML CUP PO PRN (03:30)
[2017-08-31] MEDS ORDERED: ACETAMINOPHEN/HYDROcodone 325 MG/10 MG TAB PO PRN (03:30)
[2017-08-31] MEDS ORDERED: ONDANSETRON HCL 4 MG/2 ML VIAL IVP PRN (03:30)
[2017-08-31] MEDS ORDERED: ACETAMINOPHEN 325 MG TAB PO PRN (03:30)
[2017-08-31] MEDS ORDERED: LACTULOSE SYRUP 20 GM/30 ML CUP PO PRN (03:30)
[2017-08-31] MEDS ORDERED: POTASSIUM CHLORIDE 20 MEQ CONTROLLED RELEASE TAB PO ONE (03:30)
[2017-08-31] MEDS ORDERED: ACETAMINOPHEN/HYDROcodone 325 MG/5 MG TAB PO PRN (03:30)
[2017-08-31] MEDS ORDERED: PIPERACIL-TAZO 4.5 GM PREMIX 100 ML IV SCH (04:00)
[2017-08-31] MEDS: SODIUM CHLOR 0.9% 1000 ML INJ 1,000 ML IV SCH ×2 (04:14→13:49)
[2017-08-31] MEDS: PIPERACIL-TAZO 4.5 GM PREMIX 100 ML IV SCH ×3 (05:34→17:54)
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
[2017-08-31] MEDS ORDERED: NAPROXEN 375 MG TAB PO PRN (08:15)
[2017-08-31] MEDS ORDERED: CYCLOBENZAPRINE HCL 10 MG TAB PO PRN (08:15)
[2017-08-31] MEDS ORDERED: GABAPENTIN 300 MG CAP PO SCH (09:00)
[2017-08-31] MEDS ORDERED: HEPARIN SODIUM - SQ 10,000 UNITS/ML VIAL SQ SCH (09:00)
[2017-08-31] MEDS ORDERED: SODIUM CHLORIDE 0.9% FLUSH 10 ML FLUSH IV FLUSH SCH (09:00)
[2017-08-31] MEDS ORDERED: DOCUSATE SODIUM 50 MG/SENNA 8.6 MG TAB PO SCH (09:00)
[2017-08-31] MEDS ORDERED: clonazePAM 0.5 MG TAB PO SCH (09:00)
--- NOTE | 2017-08-31 09:55 | RADRPT ---
EXAM DATE/TIME: 08/31/2017 09:30 [facility] COMPARISON: No previous studies available for comparison. INDICATIONS : Headache. RADIATION DOSE: 61.10 CTDIvol (mGy) MEDICAL HISTORY : None SURGICAL HISTORY : Hysterectomy. ENCOUNTER: Initial ACUITY: 2 days PAIN SCALE: 5/10 LOCATION: Bilateral cranial TECHNIQUE: Multiple contiguous axial images were obtained of the head. Using automated exposure control and adj ustment of the mA and/or kV according to patient size, radiation dose was kept as low as reasonably a chievable to obtain optimal diagnostic quality images. DICOM format image data is available electro nically for review and comparison. FINDINGS: CEREBRUM: The ventricles are normal for age. No evidence of midline shift, mass lesion, hemorrhage or acute in farction. No extra-axial fluid collections are seen. POSTERIOR FOSSA: The cerebellum and brainstem are intact. The 4th ventricle is midline. The cerebellopontine angle i s unremarkable. EXTRACRANIAL: The visualized portion of the orbits is intact. SKULL: The calvaria is intact. No evidence of skull fracture. CONCLUSION: No acute disease. Adalberto Tena MD on August 31, 2017 at 9:48 Board Certified Radiologist. This report was verified electronically.
[2017-08-31 10:19] LABS: AUTOMATED NEUTROPHIL # 7.4 TH/MM3 (1.8-7.7); BASOPHIL % 0.3 % (0.0-2.0); EOSINOPHIL # 0.1 TH/MM3 (0-0.4); HEMATOCRIT 34.1 % (35.0-46.0); HEMOGLOBIN 11.3 GM/DL (11.6-15.3); LYMPH % 11.5 % (9.0-44.0); LYMPHOCYTE # 1.2 TH/MM3 (1.0-4.8); MEAN CELL VOLUME 88.5 FL (80.0-100.0); MEAN CORPUSCULAR HEMOGLOBIN 29.3 PG (27.0-34.0); MEAN CORPUSCULAR HGB CONC 33.1 % (32.0-36.0); MEAN PLATELET VOLUME 8.3 FL (7.0-11.0); MONO % 17.6 % (0.0-8.0); MONOCYTE # 1.9 TH/MM3 (0-0.9); NEUT % 69.6 % (16.0-70.0); PLATELET COUNT 187 TH/MM3 (150-450); RED BLOOD COUNT 3.86 MIL/MM3 (4.00-5.30); RED CELL DISTRIBUTION WIDTH 12.6 % (11.6-17.2); WHITE BLOOD COUNT 10.6 TH/MM3 (4.0-11.0)
[2017-08-31 10:47] LABS: BICARBONATE 26.7 MEQ/L (21.0-32.0); CALCIUM 7.5 MG/DL (8.5-10.1); CREATININE 0.73 MG/DL (0.50-1.00)
[2017-08-31] MEDS ORDERED: NICOTINE 7 MG/24 HR PATCH T-DERMAL SCH (17:00)
[2017-08-31] MEDS ORDERED: REMOVE OLD PATCH T-DERMAL SCH (21:00)
== END 2017-08-31 19:52 | disposition left against medical advice (07) | DRG 872 ==
LOC: PHED 19:55 → PHEDA 08-31 03:26 → PH3A 08-31 06:35 → PH3B 08-31 11:02
PROVIDERS: ADMIT Hospitalist; ATTEND Hospitalist
DX: A41.51 Sepsis due to Escherichia coli [E. coli] (principal); N12 Tubulo-interstitial nephritis, not specified as acute or chronic; M19.90 Unspecified osteoarthritis, unspecified site; R51 Headache; E87.6 Hypokalemia; F41.9 Anxiety disorder, unspecified; F17.200 Nicotine dependence, unspecified, uncomplicated; F12.90 Cannabis use, unspecified, uncomplicated; Z16.12 Extended spectrum beta lactamase (ESBL) resistance; Z66 Do not resuscitate; Z91.14 Patient's other noncompliance with medication regimen
CPT/HCPCS: 70450; 71045; 74177; 80048; 80053; 81001; 83605; 85007; 85025; 85027; 87040; 87077; 87086; 87186; 87804; 96365; 96367; 96375; J1644; J1885; J2543; J2765; J3480; J7030; Q9967